=== PATIENT | male | born 1990 | race Caucasian/White ===

== ENCOUNTER 2020-12-03 11:20 | Emergency (ER) | payer OTHER, SELFPAY ==
[2020-12-03 11:30] VITALS: BP 161/104; PULSE 84; RESP 18; TEMP 36.7; O2SAT 99
[2020-12-03] MEDS: KETOROLAC (*BKC) 60 MG/2 ML VIAL IM (12:56)
--- NOTE | 2020-12-03 13:46 | ED.GENADULT ---
HPI - General Adult General Chief complaint: Headache Stated complaint: anabaptism pain/request gabapentin Time Seen by Provider: 12/03/20 11:42 Source: patient Mode of arrival: ambulatory Limitations: no limitations History of Present Illness HPI narrative: Patient is a 30-year-old male who presents with right temporal pain noting history of trigeminal neuralgia has taken gabapentin in the past has not had about 2 years onset of symptoms was last night localized to the right anabaptism region denies any other complaints or URI symptoms oral complaints presents in no distress has tried some of his old medication with no improvement which was carbamazepine and Aleve. Patient on arrival presents with normal gait and has no other complaints Related Data Allergies Allergy/AdvReac Type Severity Reaction Status Date / Time No Known Allergies Allergy Unverified 07/05/19 16:08 Review of Systems Review of Systems: All systems reviewed & are unremarkable except as noted in HPI and below PMFSH Past Medical History Medical History (Updated 12/03/20 @ 13:49 by Patrice Finley PA-C) Trigeminal neuralgia Social History Social History (Updated 12/03/20 @ 13:48 by Patrice Finley PA-C) Smoking status: Never smoker Exam Narrative: Exam Narrative: GENERAL: Well-appearing, well-nourished, and in no acute distress. HEAD: Normocephalic, atraumatic. Right temporal tenderness EYES: PERRLA and EOMI. ENT: Nares clear, no rhinorrhea or epistaxis. Mucous membranes moist. Oropharynx without tonsillar hypertrophy exudate or other lesions. No dental pain or abnormalities. bilateral TMs pearly carrero nonbulging NECK: Supple. No adenopathy or masses. CHEST: Clear to auscultation. No respiratory distress. No wheezes rales or rhonchi HEART: Regular rate and rhythm. No murmur heard. EXTREMITIES: Normal range of motion. No edema. SKIN: Warm, dry, no rash. NEURO: No focal deficits. Alert and oriented x3. Cranial nerves II through XII grossly intact PSYCH: Normal mood and affect. Course Course Emergency Course: Patient in the room in no distress aware of case findings treatment plan diagnosis Vital Signs Vital signs: Vital Signs Temperature 98.1 F 12/03/20 11:30 Pulse Rate 84 12/03/20 11:30 Respiratory Rate 18 12/03/20 11:30 Blood Pressure 161/104 H 12/03/20 11:30 Pulse Oximetry 99 12/03/20 11:30 Temperature 98.1 F 12/03/20 11:30 Pulse Rate 84 12/03/20 11:30 Respiratory Rate 18 12/03/20 11:30 Blood Pressure 161/104 H 12/03/20 11:30 Pulse Oximetry 99 12/03/20 11:30 Medical Decision Making MDM Narrative Medical decision making narrative: Patients headache was not sudden or maximal in onset. There are o focal neurological deficits on exam. Subarachnoid hemorrhage is felt to be unlikey at this time. There is no history of fever, and neck is supple without meningismus, making meningitis unlikely. No traumatic history or signs of trauma on exam. No risk factors for CVA, risk factors reviewed. NO ocular signs on exam and in history to suggest acute glaucoma. Patients headache is felt to be a reasonable candidate for outpatient evaluation Vital Signs Vital Signs: Vital Signs Temperature 98.1 F 12/03/20 11:30 Pulse Rate 84 12/03/20 11:30 Respiratory Rate 18 12/03/20 11:30 Blood Pressure 161/104 H 12/03/20 11:30 Pulse Oximetry 99 12/03/20 11:30 Temperature 98.1 F 12/03/20 11:30 Pulse Rate 84 12/03/20 11:30 Respiratory Rate 18 12/03/20 11:30 Blood Pressure 161/104 H 12/03/20 11:30 Pulse Oximetry 99 12/03/20 11:30 Discharge Plan Discharge Clinical Impression: Headache Patient Disposition: Home, Self-Care Condition: Stable Instructions: Antibiotic Form, Acute Headache (ED) Additional Instructions: Follow up with your primary care doctor in 5-7 days for re-evaluation. Go to ER for worsening pain, vision changes, nausea/vomiting, fever/chills, weakness, chest p
== END 2020-12-03 14:02 | disposition home or self-care (01) ==
PROVIDERS: Emergency Provider Emergency Medicine
DX: R51.9 Headache, unspecified (principal)
CPT/HCPCS: 96372; 99283; J1885

== ENCOUNTER 2020-12-06 14:18 | Emergency (ER) | payer OTHER, SELFPAY ==
[2020-12-06 14:29] VITALS: BP 161/99; PULSE 89; RESP 20; TEMP 36.9; O2SAT 98
--- NOTE | 2020-12-06 14:52 | ED.URI ---
HPI - URI/Sore Throat General Chief Complaint: Upper Respiratory Infection Stated Complaint: swelling of throat Time Seen by Provider: 12/06/20 14:32 Source: patient and RN notes reviewed Mode of arrival: ambulatory Limitations: no limitations History of Present Illness HPI Narrative: Patient presents today complaining of 4-day history of right ear pain, right-sided headache, and right-sided sore throat that increases with swallowing. He has been taking Tylenol and Excedrin without relief. Currently rates his pain 8/10. Denies cough, congestion, rhinorrhea, nausea, vomiting, diarrhea, shortness of breath or difficulty swallowing. He was seen in the ER at [facility] on 12/03/2020 for this headache. He has history of trigeminal neuralgia and believe that this was a flareup. At the time he was not experiencing ear pain or sore throat. He was given a prescription for gabapentin at that time and discharged home. MD elicited complaint: sore throat Related Data Allergies Allergy/AdvReac Type Severity Reaction Status Date / Time No Known Allergies Allergy Unverified 07/05/19 16:08 Review of Systems Review of Systems: Narrative: CONSTITUTIONAL: Denies body aches, fever, chills, or sweats. EYES: Denies visual changes, redness, or discharge. ENT: Denies rhinorrhea, congestion. + Right ear pain, sore throat CARDIOVASCULAR: Denies chest pain, palpitations, or edema. RESPIRATORY: Denies cough or dyspnea. GASTROINTESTINAL: Denies abdominal pain, nausea, vomiting, or diarrhea. GENITOURINARY: Denies dysuria or hematuria. SKIN: Denies rash, itching, or wounds. MUSCULOSKELETAL: Denies back pain, joint pain, or myalgia. NEUROLOGIC: Denies numbness, tingling, or weakness. + Headache PSYCH: Denies depression or anxiety. [facility]LY [facility] Past Medical History Medical History Trigeminal neuralgia Social History Social History Smoking status: Never smoker Gender identity (if verbalized by the patient): Male Comments At time of signature, I have reviewed and agree with nursing past medical, surgical, social and family history unless otherwise noted. Please see nursing chart for further information. There is no relevant family history pertinent to the presenting complaint Exam Narrative: Exam Narrative: GENERAL: Well-appearing, well-nourished, and in no acute distress. HEAD: Normocephalic, atraumatic. EYES: EOMI. No redness or drainage. Conjunctivae normal. ENT: Mucous membranes pink and moist. Nares clear. No rhinorrhea. TMs normal bilaterally. Throat erythematous and edematous. Tonsils 3+ without exudate. Uvula midline. NECK: Normal AROM. Supple. Right anterior cervical chain lymphadenopathy. CHEST: No respiratory distress. Clear to auscultation. HEART: Regular rate and rhythm. No murmur appreciated. Normal peripheral pulses. EXTREMITIES: Normal range of motion. No edema. SKIN: Warm, dry, no rash. Capillary refill normal. Normal skin turgor. NEURO: No focal deficits. Alert and oriented x3. Gait steady. PSYCH: Normal affect. No signs of depression or anxiety. Course Vital Signs Vital signs: Vital Signs Temperature 98.4 F 12/06/20 14:29 Pulse Rate 89 12/06/20 14:29 Respiratory Rate 20 12/06/20 14:29 Blood Pressure 161/99 H 12/06/20 14:29 Pulse Oximetry 98 12/06/20 14:29 Temperature 98.4 F 12/06/20 14:29 Pulse Rate 89 12/06/20 14:29 Respiratory Rate 20 12/06/20 14:29 Blood Pressure 161/99 H 12/06/20 14:29 Pulse Oximetry 98 12/06/20 14:29 Reviewed. Pt has been instructed to follow up with his PCP regarding his elevated blood pressure today. MDM - URI/Sore Throat Differential Diagnosis Differential diagnosis: Likely upper respiratory infection, otitis media, sinusitis, viral infection, pharyngitis and other (Strep throat, tonsillitis, dental abscess) Lab Data Attestation:
== END 2020-12-06 14:54 | disposition home or self-care (01) ==
PROVIDERS: Emergency Provider Nurse Practitioner
DX: J02.0 Streptococcal pharyngitis (principal)
CPT/HCPCS: 87880; 99213; G0463

== ENCOUNTER 2021-08-21 14:28 | Emergency (ER) | payer OTHER, SELFPAY ==
[2021-08-21 14:41] VITALS: BP 138/97; PULSE 97; RESP 16; TEMP 37.1; O2SAT 98
--- NOTE | 2021-08-21 14:56 | ED.GENADULT ---
HPI - General Adult General Chief complaint: Upper Respiratory Infection Stated complaint: Eye Pain,Congestion Time Seen by Provider: 08/21/21 14:50 Source: patient, RN notes reviewed and old records reviewed Mode of arrival: ambulatory Limitations: no limitations History of Present Illness HPI narrative: 31-year-old male who presents to [facility] with complaints of left eye redness irritation with some crusting which started today. Patient also verbalizes complaints of being congested and having nasal drainage for the past 3 days, voices is raspy denies any sore throat or known fevers. Patient works at [employer] and has not had Covid vaccinations. MD complaint: conjunctivitis left eye, URI Onset (ago): day(s) (3) Related Data Allergies Allergy/AdvReac Type Severity Reaction Status Date / Time No Known Allergies Allergy Verified 08/21/21 14:30 Review of Systems Review of Systems: CONSTITUTIONAL: Denies fever, chills, or sweats. EYES: Denies visual changes,positive redness to left eye with yellowish discharge. ENT: Positive rhinorrhea, congestion, denies any acute sore throat, or otalgia. CARDIOVASCULAR: Denies chest pain, palpitations, or edema. RESPIRATORY: Positive for cough denies dyspnea. GASTROINTESTINAL: Denies abdominal pain, nausea, vomiting, or diarrhea. GENITOURINARY: Denies dysuria or hematuria. SKIN: Denies rash or itching. MUSCULOSKELETAL: Denies back pain, joint pain, or myalgia. NEUROLOGIC: Denies headache, numbness, or weakness. PSYCHIATRIC: Denies anxiety or depression. All systems reviewed & are unremarkable except as noted in HPI and below PMFSH Past Medical History Medical History (Updated 08/21/21 @ 15:22 by Wanda Hammond NP) Hx of migraines Sinus problem Trigeminal neuralgia Surgical History Surgical History (Updated 08/21/21 @ 15:33 by Wanda Hammond NP) No history of previous surgery Family History Family History (Updated 08/21/21 @ 15:33 by Wanda Hammond NP) Other No significant family history Social History Social History Smoking status: Never smoker Gender identity (if verbalized by the patient): Male Comments At time of signature, agree with nursing past medical, surgical, social and family history. There is no relevant family history pertinent to the presenting complaint Exam Narrative: GENERAL: Well-appearing, well-nourished, and in no acute distress. HEAD: Normocephalic, atraumatic. EYES: PERRLA and EOMI. ENT: Nares clear, no rhinorrhea or epistaxis. Mucous membranes moist.TMs normal with good light reflex, throat red with no exudates or lesions but tonsils red and swollen. NECK: Supple. lymphadenopathy CHEST: Clear to auscultation. No respiratory distress.productive cough of yellow tinged mucous SAO2 98% on room air HEART: Regular rate and rhythm. No murmur heard. Normal peripheral pulses. ABDOMEN: Soft, nontender, nondistended, normal active bowel sounds. EXTREMITIES: Normal range of motion. No edema. SKIN: Warm, dry, no rash. NEURO: No focal deficits. Alert and oriented x3. Course Vital Signs Vital signs: Vital Signs Temperature 37.1 C 08/21/21 14:41 Pulse Rate 97 08/21/21 14:41 Respiratory Rate 16 08/21/21 14:41 Blood Pressure 138/97 H 08/21/21 14:41 Pulse Oximetry 98 08/21/21 14:41 Temperature 37.1 C 08/21/21 14:41 Pulse Rate 97 08/21/21 14:41 Respiratory Rate 16 08/21/21 14:41 Blood Pressure 138/97 H 08/21/21 14:41 Pulse Oximetry 98 08/21/21 14:41 Medical Decision Making Differential Diagnosis Differential Diagnosis: conjunctivitis,URI. strep pharyngitis,pharyngitis, Viral syndrome Medical Records Medical records reviewed: Yes I reviewed the external patient's medical records. Vital Signs Vital Signs: Vital Signs Temperature 37.1 C 08/21/21 14:41 Pulse Rate 97 08/21/21 14:41 Respiratory Rate 16 08/21/21 14:41 Blood Pressure 138
== END 2021-08-21 15:30 | disposition home or self-care (01) ==
PROVIDERS: Emergency Provider Registered Nurse
DX: J02.0 Streptococcal pharyngitis (principal); H10.32 Unspecified acute conjunctivitis, left eye; Z20.822 Contact with and (suspected) exposure to COVID-19
CPT/HCPCS: 87426; 87880; 99213; C9803; G0463

== ENCOUNTER 2022-07-13 13:44 | Emergency (ER) | payer OTHER, SELFPAY ==
--- NOTE | ~2022-07-13 | XR_ITS ---
EXAM: XR knee RT min 4V DATE: 07/13/2022 15:34 HISTORY: RT knee pain/swelling SINCE YESTERDAY, [facility], PAIN AT [facility] . COMPARISON: None available. FINDINGS: Normal mineralization. No fracture or dislocation. No lytic or blastic lesion. Joint space s are maintained. No erosion or periosteal change. Soft tissues within normal limits. IMPRESSION: Normal right knee radiograph findings. Reviewed, dictated and finalized at location K.
--- NOTE | 2022-07-13 14:59 | ED.EXTPRO ---
HPI - Extremity Problem General Chief complaint: Extremity Problem,Nontraumatic Stated complaint: right knee and hip pain, started yesterday Time Seen by Provider: 07/13/22 14:40 Source: patient Mode of arrival: ambulatory Limitations: no limitations History of Present Illness HPI Narrative: Patient is a 32-year-old male who presents the ED with report of right knee pain. Patient reports he began having knee pain yesterday while at work, worse w/ ambulation. He denies any heavy lifting, strenuous activity, fall, injury, abnormal twisting or any other reason to cause him to have knee pain. He states he elevated his right leg and used ice last night and pain has since improved, but he just wanted to be checked out to make sure everything was okay. Denies any significant swelling, redness, warmth, fevers. He has not tried anything for pain. Related Data Allergies Allergy/AdvReac Type Severity Reaction Status Date / Time No Known Allergies Allergy Verified 07/13/22 15:43 Review of Systems Review of Systems: CONSTITUTIONAL: Denies fever, chills, or sweats. SKIN: Denies swelling, redness to right knee. MUSCULOSKELETAL: Reports right knee pain. All systems reviewed & are unremarkable except as noted in HPI and below PMFSH Past Medical History Medical History Hx of migraines Sinus problem Trigeminal neuralgia Surgical History Surgical History No history of previous surgery Family History Family History (Updated 08/21/21 @ 15:33 by Wanda Hammond NP) Other No significant family history Social History Social History Smoking status: Never smoker Gender identity (if verbalized by the patient): Male Exam Narrative: GENERAL: Well appearing, obese, non-toxic, in no acute distress. HEAD: Normocephalic, atraumatic. NECK: Supple. No adenopathy, no masses. RESPIRATORY: Airway patent, respirations nonlabored. CARDIOVASCULAR: Regular rate and rhythm without murmurs, rubs, or gallops. Pedal pulses 2+ and equal bilaterally. MUSCULOSKELETAL: Moves all extremities. Full strength/ROM intact without gross deformities. No edema. No calf tenderness. No significant tenderness along joint spaces of R knee, no tenderness with ballottement of patella. No pain to popliteal space of R knee. No redness, significant swelling, or warmth to R knee. No pain with anterior drawer testing. SKIN: Warm, dry, normal color. No rashes. NEURO: A&O X3. Speech clear. Cranial nerves II-XII grossly intact. Steady gait. No ataxic movements. PSYCHIATRIC: Appropriate mood and affect. Normal interaction. Course Vital Signs Vital signs: Vital Signs Pulse Rate 85 07/13/22 16:05 Respiratory Rate 18 07/13/22 16:05 Blood Pressure 158/90 H 07/13/22 16:05 Pulse Oximetry 99 07/13/22 16:05 Pulse Rate 85 07/13/22 16:05 Respiratory Rate 18 07/13/22 16:05 Blood Pressure 158/90 H 07/13/22 16:05 Pulse Oximetry 99 07/13/22 16:05 MDM - Extremity (Nontraumatic) MDM Narrative Medical decision making narrative: Patient presented to ED with 1 day history of atraumatic right knee pain. Has not tried anything for pain prior to arrival. Unable to elicit significant tenderness on clinical examination. No redness, warmth, significant swelling to suggest infection, gout, septic arthritis. No calf pain or swelling to suggest DVT. No known injury. Neurovascularly intact. X-ray negative for effusion, osseous abnormality, arthritis. Patient given Toradol injection in the ED. Naproxen sent to pharmacy. Rene wrap applied. Discussed RICE treatment and reasons to return to ED. Advised patient to follow-up with primary care doctor for further evaluation if pain continues. Patient agrees to plan. Medical Records Attestation: I reviewed the patient's medical records.
[2022-07-13] MEDS: KETOROLAC (*BKC) 60 MG/2 ML VIAL IM (15:55)
[2022-07-13 16:05] VITALS: BP 158/90; PULSE 85; RESP 18; O2SAT 99
== END 2022-07-13 16:05 | disposition home or self-care (01) ==
PROVIDERS: Emergency Provider Emergency Medicine
DX: M25.561 Pain in right knee (principal)
CPT/HCPCS: 73564; 96372; 99283; J1885